=== PATIENT | female | born 1955 | race Caucasian/White ===

== ENCOUNTER 2016-11-24 22:30 | Inpatient (IN) ==
--- NOTE | 2016-11-24 22:34 | Emergency Department Note ---
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 Denies: fever, orthopnea, lower extremity pain, polyuria, polydipsia, parasthesias, palpitations, hemoptysis, diaphoresis, nausea/vomiting , syncope, abdominal pain, sense of impending doom Treatment prior to arrival: oxygen, bronchodilator, other (solumedrol) Cough Description: Involuntary, Productive, Moist, Bronchospastic Cough Frequency: Continuous Sputum production: Yes Sputum Amount: Moderate Sputum Color: Green, Rust - Related Data Home Medications Medication Instructions Recorded Confirmed Albuterol Sulfate [Proair Hfa] 2 puff IN Q4H 07/25/15 07/25/15 Aspirin [Adult Low Dose Aspirin EC] 81 mg PO DAILY 07/25/15 07/25/15 Benzonatate [Tessalon] 100 mg PO TID 07/25/15 07/25/15 Budesonide/Formoterol 160/4.5 2 puff IN BID 07/25/15 07/25/15 [Symbicort 160/4.5] Ergocalciferol (VITAMIN D2) 1 cap PO PER PKG DI 07/25/15 07/25/15 [Vitamin D2 (50,000 UNIT)] Furosemide [Lasix] 40 mg PO DAILY 07/25/15 07/25/15 Guaifenesin [Mucinex] 1,200 mg PO BID 07/25/15 07/25/15 HYDROcodone/Acet 7.5/325 mg [[place] 1 tab PO QID PRN 07/25/15 07/25/15 7.5-325 mg] Ipratropium [ATROVENT Inhaler] 2 puff IH QID 07/25/15 07/25/15 Ipratropium/Albuterol Neb [Duoneb] 3 ml IH Q6HR 07/25/15 07/25/15 Polyethylene Glycol 3350 [MiraLAX] 17 gm PO DAILY 07/25/15 07/25/15 Spironolactone [Aldactone] 25 mg PO DAILY 07/25/15 07/25/15 clonazePAM [Klonopin] 1 mg PO TID 07/25/15 07/25/15 Allergies Allergy/AdvReac Type Severity Reaction Status Date / Time venom-honey bee Allergy Difficulty Verified 11/24/16 22:35 [bee venom (honey bee)] Breathing All systems ED: reviewed and negative except as stated. Review of Systems: As Per HPI Constitutional: Denies: fever, chills Eyes: Denies: eye pain ENT ED: Denies: ear pain Cardiovascular: Denies: chest pain Respiratory: Reports: cough, dyspnea, wheezes Gastrointestinal: Denies: abdominal pain, nausea Genitourinary: Denies: urgency, dysuria Musculoskeletal: Denies: back pain Integumentary: Denies: rash, abrasion Neurological: Denies: headache Psychiatric: Denies: anxiety Endocrine: Denies: fatigue Hematological/Lymphatic: Denies: easy bleeding Allergic/Immunologic: Denies: facial swelling Past Medical History - Past Medical History Attestation: Yes The following information was validated with the patient. Source: patient, old records reviewed, nursing notes reviewed Medical history: Reports: arthritis, COPD, GERD, hepatitis, malignancy, other Surgical history: Reports: other Psychiatric history: Reports: anxiety, depression - Social History Smoking Status: Current some day smoker Smokeless Tobacco Status: No Alcohol use: Reports: none Drug use: Reports: none Physical Exam - General Limitations: no limitations General appearance: alert, in no apparent distress, anxious - Head Head exam: atraumatic, normocephalic, normal inspection - Eye Eye exam: Present: normal appearance, PERRL, EOMI - ENT ENT exam: normal exam, normal oropharynx, mucous membranes moist, normal external ear exam - Neck Neck exam: Present: normal inspection, full ROM, trachea midline - Chest Chest inspection: Present: normal inspection, symmetric chest wall rise - Respiratory Respiratory exam: Present: prolonged expiratory phase, other (Very tight to auscultation) - Cardiovascular Cardiovascular exam: Present: regular rate, normal rhythm, normal heart sounds - Abdominal Exam Abdominal exam: Present: soft, Non-Tender, normal bowel sounds. Absent: mass, pulsatile mass - Extremities Exam Extremities exam: Present: normal inspection, full ROM, normal capillary refill. Absent: tenderness, pedal edema, joint swelling, calf tenderness - Expanded Lower Extremity Exam Neurovascular/Tendon exam: Present: normal capillary refill, normal fine/light touch Gait: observed and normal - Back Exam Back exam: Present: normal inspection, full ROM. Absent: muscle spasm - Neurological Exam Neurological exam: Present: alert, oriented X3, CN II-XII intact - Psychiatric Psychiatric exam: Present: normal affect, normal mood - Skin Skin exam: Present: warm, dry, intact, normal color Course Course Narrative: Patient seen and evaluated patient had sats in the low 80s upon arrival by EMS. Upon arrival here to the emergency room after Solu-Medrol and DuoNeb being given in route sats are in the 90s pneumonia COPD exacerbation and congestive heart failure can be etiologies for this work up is been started patient is resting comfortably at this time on 4 L nasal cannula awaiting results - Reevaluation(s) Reevaluation #1: She responded well to DuoNeb treatments here in the emergency room having already received solu-Medrol give her a dose of Levaquin IV admitted to [facility] speaking with Dr. Amraal for admission marked improvement in air exchange and diminshed wheezing and increase in air exchange patient and she sees Magalis Adame on a regular basis as result Dr. Locke is applications specialist we will contact Dr. Locke and make arrangements for admission Vital Signs Temperature 98.9 F 11/24/16 22:35 Pulse Rate 113 11/24/16 22:35 Respiratory Rate 24 11/24/16 22:35 Blood Pressure 135/79 11/24/16 22:35 O2 Sat by Pulse Oximetry 79 11/24/16 22:35 Temperature 98.9 F 11/24/16 22:35 Pulse Rate 113 11/24/16 22:35 Respiratory Rate 24 11/24/16 22:35 Blood Pressure 135/79 11/24/16 22:35 O2 Sat by Pulse Oximetry 91 11/24/16 22:37 Oxygen Delivery Oxygen Delivery Room Air Shortness of Breath/Dyspnea - Differential Diagnosis Likely: acute exacerbation of chronic obstructive airways disease, pneumonia - Medical Records Medical records reviewed: Yes I reviewed the patient's medical records. - Lab Data Lab results reviewed: Yes I reviewed the patient's lab results. Result diagrams: 11/24/16 22:50 11/24/16 22:50 Lab Results 11/24/16 11/24/16 11/24/16 Range/Units 22:50 22:50 22:50 WBC 19.7 H (4.3-11.1) K/mcL RBC 3.97 (3.82-4.97) M/mcL Hgb 12.7 (11.5-15.4) g/dL Hct 38.6 (35.3-44.9) % MCV 97.2 (83.0-100.0) fL MCH 32.0 (28.0-33.3) pg MCHC 32.9 (31.6-35.5) g/dL RDW 11.9 (11.5-14.5) % Plt Count 158 (140-400) K/mcL MPV 9.6 (9.4-12.4) fL Immature Gran % 0.5 (0-4) % Seg Neutrophils % 76.7 % Lymphocytes % 12.1 % Monocytes % 10.0 % Eosinophils % 0.4 % Basophils % 0.3 % Neutrophils # 15.1 H (1.6-8.9) K/mcL Lymphocytes # 2.4 (0.6-4.6) K/mcL Monocytes # 2.0 H (0.0-1.3) K/mcL Eosinophils # 0.1 (0.0-0.6) K/mcL Basophils # 0.1 (0.0-0.2) K/mcL PT 12.1 (9.4-12.1) Seconds INR 1.1 APTT 30.8 (26.0-36.0) Seconds VBG Lactic Acid (0.5-2.2) mmol/L Sodium 140 (136-145) mEq/L Potassium 3.1 L (3.5-4.5) mEq/L Chloride 91 L (98-109) mEq/L Carbon Dioxide 36 H (19-29) mEq/L BUN 6 L (7-20) mg/dL Creatinine 0.56 L (0.57-1.11) mg/dL Est GFR ( Amer) > 60 (> 60) Est GFR (Non-Af Amer) > 60 (> 60) BUN/Creatinine Ratio 11 (6-26) Glucose 109 H (70-99) mg/dL Calculated Osmolality 288 (280-300) Calcium 9.8 (8.6-10.8) mg/dL Troponin I (0-0.03) ng/mL 11/24/16 11/24/16 Range/Units 22:50 22:50 WBC (4.3-11.1) K/mcL RBC (3.82-4.97) M/mcL Hgb (11.5-15.4) g/dL Hct (35.3-44.9) % MCV (83.0-100.0) fL MCH (28.0-33.3) pg MCHC (31.6-35.5) g/dL RDW (11.5-14.5) % Plt Count (140-400) K/mcL MPV (9.4-12.4) fL Immature Gran % (0-4) % Seg Neutrophils % % Lymphocytes % % Monocytes % % Eosinophils % % Basophils % % Neutrophils # (1.6-8.9) K/mcL Lymphocytes # (0.6-4.6) K/mcL Monocytes # (0.0-1.3) K/mcL Eosinophils # (0.0-0.6) K/mcL Basophils # (0.0-0.2) K/mcL PT (9.4-12.1) Seconds INR APTT (26.0-36.0) Seconds VBG Lactic Acid 1.1 (0.5-2.2) mmol/L Sodium (136-145) mEq/L Potassium (3.5-4.5) mEq/L Chloride (98-109) mEq/L Carbon Dioxide (19-29) mEq/L BUN (7-20) mg/dL Creatinine (0.57-1.11) mg/dL Est GFR ( Amer) (> 60) Est GFR (Non-Af Amer) (> 60) BUN/Creatinine Ratio (6-26) Glucose (70-99) mg/dL Calculated Osmolality (280-300) Calcium (8.6-10.8) mg/dL Troponin I 0.00 (0-0.03) ng/mL - Radiology Data Radiology results reviewed: Yes I reviewed the patient's radiology results. ITS Impressions Chest X-Ray 11/24/16 22:32 IMPRESSION: Hyperinflation suggestive of COPD. Blunting of left costophrenic angle is suspicious for small left pleural effusion or pleural scarring. D/ / Maykel Lemus MD / Maykel Lemus MD Interpreting Provider: Maykel Lemus MD - EKG Data EKG attestation: Yes I reviewed and interpreted this EKG. EKG results narrative: Sinus tach rate 112 MI 100 QRS 93 QT 344 axis LXXII short MI interval Critical Care Time Critical Care Time: No
[2016-11-24] MEDS ORDERED: Ipratropium/Albuterol Neb 3 ML IH ONE (22:37)
[2016-11-24 22:55] LABS: Basophils # 0.1 K/mcL (0.0-0.2); Basophils % 0.3 %; Eosinophils # 0.1 K/mcL (0.0-0.6); Eosinophils % 0.4 %; Hematocrit 38.6 % (35.3-44.9); Hemoglobin 12.7 g/dL (11.5-15.4); Immature Granulocytes % 0.5 % (0-4); Lymphocytes # 2.4 K/mcL (0.6-4.6); Lymphocytes % 12.1 %; Mean Corpuscular HGB Conc 32.9 g/dL (31.6-35.5); Mean Corpuscular Volume 97.2 fL (83.0-100.0); Mean Platelet Volume 9.6 fL (9.4-12.4); Platelet Count 158 K/mcL (140-400); Red Blood Count 3.97 M/mcL (3.82-4.97); Red Cell Distribution Width 11.9 % (11.5-14.5); Segmented Neutrophils % 76.7 %
[2016-11-24 22:59] LABS: INR 1.1; Prothrombin Time 12.1 Seconds (9.4-12.1)
[2016-11-24 23:00] LABS: Neutrophils # 15.1 K/mcL (1.6-8.9)
[2016-11-24 23:02] LABS: Activated Partial Thrombo Time 30.8 Seconds (26.0-36.0)
[2016-11-24] MEDS ORDERED: Levofloxacin 500 MG/100 ML 500 MG/100 ML BAG IVPB ONE (23:05)
[2016-11-24 23:08] LABS: BUN/Creatinine Ratio 11 (6-26); Blood Urea Nitrogen 6 mg/dL (7-20); Calcium 9.8 mg/dL (8.6-10.8); Carbon Dioxide 36 mEq/L (19-29); Chloride 91 mEq/L (98-109); Glucose 109 mg/dL (70-99); Osmolality,Calculated 288 (280-300); Potassium 3.1 mEq/L (3.5-4.5); Sodium 140 mEq/L (136-145); eGFR For African Americans > 60 (> 60); eGFR For Non-African Americans > 60 (> 60)
[2016-11-24] MEDS ORDERED: Ondansetron ODT 4 MG TAB.RAPDIS SL PRN (23:55)
[2016-11-24] MEDS ORDERED: Naloxone 0.4 MG/ML INJ IVP PRN (23:55)
[2016-11-24] MEDS ORDERED: Albuterol 2.5 MG/3 ML NEBULIZER IH PRN (23:55)
[2016-11-24] MEDS ORDERED: *HR* HYDROcodone/Acet 7.5/325 mg TABLET PO PRN (23:55)
[2016-11-24] MEDS ORDERED: Acetaminophen 325 MG TABLET PO PRN (23:55)
[2016-11-25] MEDS: methylPREDNISolone 125 MG/2 ML VIAL IVP SCH ×4 (01:41→18:10)
[2016-11-25] MEDS: Ipratropium/Albuterol Neb 3 ML IH SCH ×5 (04:05→21:06)
[2016-11-25] MEDS: *HR* Enoxaparin 30 MG/0.3 ML SYRINGE SQ SCH (06:27)
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
[2016-11-25] MEDS: FLUoxetine 20 MG CAPSULE PO SCH (10:37)
[2016-11-25] MEDS: Furosemide 40 MG TABLET PO SCH (10:37)
[2016-11-25] MEDS: clonazePAM 1 MG TABLET PO SCH ×3 (10:37→21:06)
[2016-11-25] MEDS: Spironolactone 25 MG TABLET PO SCH (10:37)
[2016-11-25] MEDS: Aspirin Enteric Coated 81 MG Tablet PO SCH (10:37)
[2016-11-25] MEDS: Ibuprofen 400 MG TABLET PO PRN ×2 (10:37→16:41)
[2016-11-25] MEDS: Levofloxacin 500 MG/100 ML 500 MG/100 ML BAG IVPB SCH (10:38)
[2016-11-25] MEDS: Sennosides/Docusate Sodium TABLET PO SCH ×2 (10:38→21:05)
[2016-11-25] MEDS: *HR* HYDROcodone/Acet 7.5/325 mg TABLET PO PRN (16:55)
--- NOTE | 2016-11-25 18:52 | Event Note ---
Date of Encounter: 11/25/16 Time of Encounter: 18:49 Checked on this patient tonight. She had a good day. She still has some sputum production. No hemoptysis. No fevers or chills. Her vitals are stable. Saturations are good as long as she is wearing her oxygen. She has had a bed bath and cleaned up and feels much better. Lungs show diminished breath sounds in all hernandez but no dyspnea. Heart regular rate without murmur. Lower extremities without edema. Her right deltoid area shows a very tender mass measuring about 7 cm in diameter. It seems fairly fixed. No cutaneous color changes. We will do an x-ray on this tomorrow. This could be a metastatic lesion. She has had lung cancer. No history of trauma. We will discontinue her bellman. Continue same treatment. Sputum on Gram stain shows gram-positive cocci. Culture pending.
[2016-11-26] MEDS: Ipratropium/Albuterol Neb 3 ML IH SCH ×6 (00:12→21:04)
[2016-11-26] MEDS: methylPREDNISolone 125 MG/2 ML VIAL IVP SCH ×3 (00:12→17:01)
[2016-11-26 05:19] LABS: Immature Granulocytes % 0.7 % (0-4); Lymphocytes # 0.5 K/mcL (0.6-4.6); Mean Corpuscular HGB Conc 33.3 g/dL (31.6-35.5); Mean Corpuscular Hemoglobin 31.8 pg (28.0-33.3); Mean Corpuscular Volume 95.5 fL (83.0-100.0); Mean Platelet Volume 10.1 fL (9.4-12.4); Monocytes # 0.5 K/mcL (0.0-1.3); Monocytes % 2.7 %; Neutrophils # 15.7 K/mcL (1.6-8.9); Platelet Count 174 K/mcL (140-400); Red Blood Count 3.77 M/mcL (3.82-4.97); Red Cell Distribution Width 11.7 % (11.5-14.5); Segmented Neutrophils % 93.6 %
[2016-11-26 05:23] LABS: Prothrombin Time 10.8 Seconds (9.4-12.1)
[2016-11-26 05:25] LABS: Activated Partial Thrombo Time 27.5 Seconds (26.0-36.0)
[2016-11-26 05:30] LABS: BUN/Creatinine Ratio 23 (6-26); Blood Urea Nitrogen 13 mg/dL (7-20); Calcium 9.6 mg/dL (8.6-10.8); Carbon Dioxide 38 mEq/L (19-29); Chloride 96 mEq/L (98-109); Glucose 170 mg/dL (70-99); Osmolality,Calculated 300 (280-300); Potassium 3.2 mEq/L (3.5-4.5); Sodium 143 mEq/L (136-145); eGFR For African Americans > 60 (> 60); eGFR For Non-African Americans > 60 (> 60)
[2016-11-26] MEDS: *HR* Enoxaparin 30 MG/0.3 ML SYRINGE SQ SCH (06:26)
[2016-11-26] MEDS: FLUoxetine 20 MG CAPSULE PO SCH (08:09)
[2016-11-26] MEDS: Spironolactone 25 MG TABLET PO SCH (08:09)
[2016-11-26] MEDS: Furosemide 40 MG TABLET PO SCH (08:09)
[2016-11-26] MEDS: Sennosides/Docusate Sodium TABLET PO SCH ×2 (08:09→21:03)
[2016-11-26] MEDS: Levofloxacin 500 MG/100 ML 500 MG/100 ML BAG IVPB SCH (08:10)
[2016-11-26] MEDS: clonazePAM 1 MG TABLET PO SCH ×3 (08:10→21:03)
[2016-11-26] MEDS: Ibuprofen 400 MG TABLET PO PRN (08:10)
[2016-11-26] MEDS: Aspirin Enteric Coated 81 MG Tablet PO SCH (08:10)
[2016-11-26] MEDS ORDERED: Ipratropium/Albuterol Neb 3 ML IH PRN (09:08)
--- NOTE | 2016-11-26 09:09 | Internal Med Progress Note ---
Date of Encounter: 11/26/16 Time of Encounter: 08:39 - Assessment and plan (1) Acute exacerbation of chronic obstructive airways disease Current Visit: Yes Status: Acute Assessment and plan: She has had definite improvement symptomatically as well as physically on examination. Continue the same. Still often dependent. We will try to taper down her IV Solu-Medrol. She does not need treatments to the night. We will try to increase her activity level. (2) Sputum production Current Visit: Yes Status: Acute Assessment and plan: Sputum culture result is pending. She is on Levaquin. White blood counts improved. Clinically and symptomatically improved. Continue the same. (3) Oxygen dependent Current Visit: Yes Status: Chronic Assessment and plan: Still requiring oxygen at 3-4 L and has good saturations at 93%. We will increase her activity level and see how she tolerates it. (4) Anxiety and depression Current Visit: Yes Status: Chronic Assessment and plan: Seems to be under good control with current regimen will continue the same. (5) Immunocompromised due to corticosteroids Current Visit: Yes Status: Chronic Assessment and plan: Continue the IV antibiotics. Sputum cultures pending. (6) DVT prophylaxis Current Visit: Yes Status: Acute - Subjective Interval history: Patient continues to improve and feel much better. She wants to be able to be out of bed more. She sat up in a chair yesterday. She denies any cardiac type chest pain. She still has right upper humerus pain and a palpable mass. She denies any GI or symptoms. No lower extremity pain or swelling. She is very happy that her saturations are staying so good. She does not think she needs to be awakened for routine treatment in the middle of the night. She still has thick sputum production. - Constitutional Vitals: Temp Pulse Resp BP Pulse Ox 98.2 F 95 16 119/73 93 11/26/16 07:19 11/26/16 07:19 11/26/16 07:19 11/26/16 07:19 11/26/16 07:19 General appearance: Present: A&O X 3, no acute distress, answers questions appropriately - Respiratory Additional comments: Markedly diminished breath sounds with a few dry crackles in the bases. More audible breath sounds anteriorly. No respiratory distress. Saturations 93% with 4 L per nasal cannula - Cardiovascular Cardiovascular exam: Present: RRR, +S1, +S2. Absent: systolic murmur - GI/Abdominal GI/Abdominal exam: Present: soft. Absent: mass, tenderness - Extremities Exam Extremities exam: Absent: calf tenderness, pedal edema Additional comments: Right upper arm near deltoid area shows 7 or 8 cm tender soft tissue mass. Internal Medicine: Result - Labs CBC & Chem 7: 11/26/16 04:55 11/26/16 04:55 Labs: Short CBC 11/26/16 Range/Units 04:55 WBC 16.8 H (4.3-11.1) K/mcL Hgb 12.0 (11.5-15.4) g/dL Hct 36.0 (35.3-44.9) % Plt Count 174 (140-400) K/mcL Neutrophils # 15.7 H (1.6-8.9) K/mcL BMP 11/26/16 04:55 Sodium 143 Potassium 3.2 L Chloride 96 L Carbon Dioxide 38 H BUN 13 Creatinine 0.56 L Glucose 170 H Calcium 9.6 Labs have been reviewed. Platelets count is improved. Potassium better but still low. Sputum culture is still pending. - ABG Interpretation ABG results: PT/INR, D-dimer PT 10.8 Seconds (9.4-12.1) 11/26/16 04:55 Consult Discharge Plan - Plan Referrals: Anneliese Amaral MD [Primary Care Provider] -
[2016-11-26] MEDS: *HR* HYDROcodone/Acet 7.5/325 mg TABLET PO PRN (17:01)
[2016-11-27] MEDS: methylPREDNISolone 125 MG/2 ML VIAL IVP SCH ×3 (01:11→15:33)
[2016-11-27] MEDS: Ipratropium/Albuterol Neb 3 ML IH SCH ×3 (05:08→15:33)
[2016-11-27 05:23] LABS: Hemoglobin 12.5 g/dL (11.5-15.4); Immature Granulocytes % 0.8 % (0-4); Lymphocytes % 3.8 %; Mean Corpuscular HGB Conc 32.9 g/dL (31.6-35.5); Mean Corpuscular Volume 97.2 fL (83.0-100.0); Mean Platelet Volume 10.2 fL (9.4-12.4); Platelet Count 208 K/mcL (140-400); Red Blood Count 3.91 M/mcL (3.82-4.97); Red Cell Distribution Width 11.8 % (11.5-14.5); Segmented Neutrophils % 93.1 %
[2016-11-27 05:24] LABS: Basophils % 0.1 %; Lymphocytes # 0.5 K/mcL (0.6-4.6); Monocytes # 0.3 K/mcL (0.0-1.3); Monocytes % 2.2 %; Neutrophils # 13.2 K/mcL (1.6-8.9)
[2016-11-27 05:35] LABS: BUN/Creatinine Ratio 31 (6-26); Blood Urea Nitrogen 19 mg/dL (7-20); Calcium 9.6 mg/dL (8.6-10.8); Chloride 97 mEq/L (98-109); Glucose 147 mg/dL (70-99); Osmolality,Calculated 305 (280-300); Potassium 3.4 mEq/L (3.5-4.5); Sodium 145 mEq/L (136-145); eGFR For African Americans > 60 (> 60); eGFR For Non-African Americans > 60 (> 60)
[2016-11-27 05:41] LABS: Carbon Dioxide 41 mEq/L (19-29)
[2016-11-27] MEDS: *HR* Enoxaparin 30 MG/0.3 ML SYRINGE SQ SCH (06:27)
[2016-11-27 07:07] VITALS: BP 118/80
[2016-11-27] MEDS: Aspirin Enteric Coated 81 MG Tablet PO SCH (09:38)
[2016-11-27] MEDS: Levofloxacin 500 MG/100 ML 500 MG/100 ML BAG IVPB SCH (09:39)
[2016-11-27] MEDS: Spironolactone 25 MG TABLET PO SCH (09:39)
[2016-11-27] MEDS: FLUoxetine 20 MG CAPSULE PO SCH (09:39)
[2016-11-27] MEDS: clonazePAM 1 MG TABLET PO SCH ×2 (09:39→15:34)
[2016-11-27] MEDS: Sennosides/Docusate Sodium TABLET PO SCH (09:39)
[2016-11-27] MEDS: Furosemide 40 MG TABLET PO SCH (09:39)
[2016-11-27] MEDS: Ibuprofen 400 MG TABLET PO PRN (09:41)
--- NOTE | 2016-11-27 11:45 | Internal Med Progress Note ---
Date of Encounter: 11/27/16 Time of Encounter: 11:40 - Assessment and plan (1) Acute exacerbation of chronic obstructive airways disease Status: Acute Assessment and plan: Exacerbation of COPD and much improved. We continue to wean the steroids. She still requires oxygen at 4 L which is her usual at home. Nebulizer treatments have been backed down a bit. She is able to increase her activity level, but she still gets dyspneic and hypoxic easily. Will recommend swing bed. (2) Sputum production Status: Acute Assessment and plan: Sputum culture is still pending. (3) Oxygen dependent Status: Chronic Assessment and plan: On oxygen. Still requires 4 L. (4) Anxiety and depression Status: Chronic (5) Immunocompromised due to corticosteroids Status: Chronic (6) DVT prophylaxis Status: Acute - Subjective Interval history: She continues to show improvement. She has been able to be out of bed, goes to the toilet, has been up to the sink while wearing her oxygen. She does however become dyspneic easily. She tried to walk in the hallway yesterday and her saturations dropped to the 70s and low 80s. Just before I came in the room she had been up to the sink and just got into bed and she was still dyspneic for a few minutes. She is not back to her baseline. She states her sputum is less in amount, and is thinner and showing improvement as any cardiac pain. She denies any pain or swelling in extremities. Eating well. - Constitutional Vitals: Temp Pulse Resp BP Pulse Ox 98 F 79 15 118/80 92 11/27/16 07:05 11/27/16 07:05 11/27/16 07:05 11/27/16 07:05 11/27/16 07:05 General appearance: Present: mild distress (She was dyspneic with minimal exertion), A&O X 3, answers questions appropriately - Neck Neck exam general surgery: Absent: lymphadenopathy - Respiratory Additional comments: Diminished breath sounds. Can barely hear anything posteriorly. Slight breath sounds anteriorly but clear - Cardiovascular Cardiovascular exam: Present: distant heart sounds, RRR, +S1, +S2. Absent: systolic murmur - GI/Abdominal GI/Abdominal exam: Absent: guarding, hepatomegaly, splenomegaly Additional comments: Slight tenderness on palpation. Seems to be generalized. No guarding or rebound or rigidity - Extremities Exam Extremities exam: Absent: calf tenderness, pedal edema, tenderness Internal Medicine: Result - Labs CBC & Chem 7: 11/27/16 05:15 11/27/16 05:15 Labs: Short CBC 11/27/16 Range/Units 05:15 WBC 14.2 H (4.3-11.1) K/mcL Hgb 12.5 (11.5-15.4) g/dL Hct 38.0 (35.3-44.9) % Plt Count 208 (140-400) K/mcL Neutrophils # 13.2 H (1.6-8.9) K/mcL BMP 11/27/16 05:15 Sodium 145 Potassium 3.4 L Chloride 97 L Carbon Dioxide 41 H* BUN 19 Creatinine 0.62 Glucose 147 H Calcium 9.6 Labs have been reviewed. White blood cell count continues to improve. Potassium improved. Carbon dioxide though up to 41. Sputum culture still pending - ABG Interpretation ABG results: PT/INR, D-dimer PT 10.8 Seconds (9.4-12.1) 11/26/16 04:55 Consult Discharge Plan - Plan Referrals: Anneliese Amaral MD [Primary Care Provider] -
[2016-11-27] MEDS: *HR* HYDROcodone/Acet 7.5/325 mg TABLET PO PRN (15:40)
--- NOTE | 2016-11-27 16:43 | Electrocardiograph Report ---
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
--- NOTE | 2016-11-29 12:08 | Discharge Summary ---
Date of Encounter: 11/27/16 Time of Encounter: 11:40 - Discharge Diagnosis (1) Pneumonia Priority: Primary Status: Acute Comments: Patient was admitted with exacerbation of COPD but also had fever, elevated white blood cell count and sputum production. Her sputum finally grew Haemophilus influenza and therefore primary diagnosis is pneumonia. She did well with intravenous Levaquin. It is beta lactamase positive. She is still not ready for discharge because of her severe COPD. This is her second hospitalization in about 2-3 months. She will be transferred to a swing bed. Qualifiers: Pneumonia type: due to Haemophilus influenzae Laterality: unspecified laterality Lung location: unspecified part of lung Qualified Code(s): J14 - Pneumonia due to Hemophilus influenzae (2) Acute exacerbation of chronic obstructive airways disease Priority: Secondary Status: Acute Comments: Acute exacerbation of COPD on chronic COPD. Likely underlying pneumonia from H influenza is partially responsible. She was placed on aggressive IV steroids, nebulizer treatments, continuation of her oxygen at 4 L. By day of discharge she was improved but not back to baseline. She is still dyspneic and hypoxic. She is dyspneic with minimal movement in the room. She needs ongoing care and will be transferred to a swing bed. (3) Sputum production Priority: Secondary Status: Acute Comments: Sputum showed Haemophilus influenza which was beta lactamase positive (4) Oxygen dependent Priority: Secondary Status: Chronic Comments: She is oxygen dependent. At home she is on 4 L continuously. We will try to wean her downward a bit here. She does desat with minimal exertion. (5) Anxiety and depression Priority: Secondary Status: Chronic Comments: Chronically she has medication for anxiety and depression and PTSD. We maintained her usual medication and she has done very well. (6) Immunocompromised due to corticosteroids Priority: Secondary Status: Chronic Comments: Chronically she uses prednisone 5 mg. She was given IV Solu-Medrol and weaning downward. She still needs to continue the IV taper and will be switched to a swing bed. (7) DVT prophylaxis Priority: Secondary Status: Inactive - Discharge Medications Home Medications: Albuterol Sulfate [Proair Hfa] 2 puff IN Q4H 07/25/15 [History] Aspirin [Adult Low Dose Aspirin EC] 81 mg PO DAILY 07/25/15 [History] Budesonide/Formoterol 160/4.5 [Symbicort 160/4.5] 2 puff IN BID 07/25/15 [ History] Ergocalciferol (VITAMIN D2) [Vitamin D2 (50,000 UNIT)] 1 cap PO PER PKG DI 07/24 [History] Furosemide [Lasix] 40 mg PO DAILY 07/25/15 [History] Guaifenesin [Mucinex] 1,200 mg PO BID 07/25/15 [History] HYDROcodone/Acet 7.5/325 mg [[place] 7.5-325 mg] 10 mg PO QID PRN 07/25/15 [ History] Ipratropium [ATROVENT Inhaler] 2 puff IH QID 07/25/15 [History] Ipratropium/Albuterol Neb [Duoneb] 3 ml IH Q6HR 07/25/15 [History] Polyethylene Glycol 3350 [MiraLAX] 17 gm PO DAILY 07/25/15 [History] Spironolactone [Aldactone] 25 mg PO DAILY 07/25/15 [History] clonazePAM [Klonopin] 2 mg PO TID 07/25/15 [History] Docusate Sodium [Stool Softener] 100 mg PO BID 11/25/16 [History] FLUoxetine HCl [Fluoxetine HCl] 40 mg PO DAILY 11/25/16 [History] Omeprazole [PriLOSEC] 20 mg PO BID 11/25/16 [History] Allergies/Adverse Reactions: 3 Allergy/AdvReac Type Severity Reaction Status Date / Time venom-honey bee Allergy Difficulty Verified 11/25/16 00:59 [bee venom (honey bee)] Breathing Date of admission: 11/24/16 23:41 Primary care physician: Dyllan Feng Wolf, Debra, CNP Discharging clinician: Dyllan Feng Anticipated date of discharge: 11/27/16 - Patient Status Disposition: Transfer Hospital Swing Bed Condition: Fair - Discharge Instructions Follow Up With: Anneliese Amaral MD [Primary Care Provider] - Forms: ED Satisfaction Letter Interval History: See today's progress note. Hospital course: Ms. Quezada is a 61 year old female with known history of chronic COPD and oxygen dependent. She was admitted with fever, leukocytosis and exacerbation of COPD and sputum production. Her sputum finally grew H influenza. She has been on Levaquin and IV Solu-Medrol. She has shown great improvement but not ready for home. She is easily hypoxic and dyspneic with minimal movement. She will be transferred to a swing bed for ongoing custodial care, IV same Medrol, oxygen therapy and IV Levaquin. Please see the swing bed chart. - Time Spent with Patient Total time spent providing and/or coordinating discharge services: - Constitutional Vitals: Temp Pulse Resp BP Pulse Ox 98 F 79 15 118/80 92 11/27/16 07:05 11/27/16 07:05 11/27/16 07:05 11/27/16 07:05 11/27/16 07:05 General appearance: Present: mild distress (She was dyspneic with minimal exertion), A&O X 3, answers questions appropriately - Respiratory Additional comments: Markedly diminished breath sounds, virtually none posteriorly. Minimal anterior breath sounds but clear - Cardiovascular Cardiovascular exam: Present: distant heart sounds, RRR, +S1, +S2. Absent: systolic murmur - GI/Abdominal GI/Abdominal exam: Present: soft. Absent: tenderness - Extremities Exam Extremities exam: Absent: calf tenderness, pedal edema, tenderness
== END 2016-11-27 17:51 | disposition other institution (70) | DRG 190 ==
LOC: EMEROOGRE 22:30 → INPGRE 23:41
PROVIDERS: ADMIT Family Medicine; ATTEND Family Medicine

== ENCOUNTER 2016-11-27 18:24 | Inpatient (IN) ==
[2016-11-27] MEDS ORDERED: *HR* HYDROcodone/Acet 7.5/325 mg TABLET PO PRN ×2 (18:41→19:02)
[2016-11-27] MEDS ORDERED: Naloxone 0.4 MG/ML INJ IVP PRN (18:46)
[2016-11-27] MEDS ORDERED: Ondansetron ODT 4 MG TAB.RAPDIS SL PRN (18:46)
[2016-11-27] MEDS ORDERED: Acetaminophen 325 MG TABLET PO PRN (18:46)
[2016-11-27] MEDS ORDERED: Albuterol 2.5 MG/3 ML NEBULIZER IH PRN (18:46)
[2016-11-27] MEDS: clonazePAM 1 MG TABLET PO SCH (21:46)
[2016-11-27] MEDS: Sennosides/Docusate Sodium TABLET PO SCH (21:47)
--- NOTE | 2016-11-27 23:55 | Discharge Summary ---
Date of Encounter: 11/27/16 Time of Encounter: 11:40 - Discharge Diagnosis (1) Pneumonia Priority: Primary Status: Acute Comments: Patient was admitted with exacerbation of COPD but also had fever, elevated white blood cell count and sputum production. Her sputum culture grew Haemophilus influenza and I think therefore primary diagnosis is pneumonia. She did well with Levaquin. It is lactamase positive. She is still not ready for discharge because of her severe COPD. This is her second hospitalization in about 2-3 months. She will be transferred to a swing bed. Qualifiers: Pneumonia type: due to Haemophilus influenzae Laterality: unspecified laterality Lung location: unspecified part of lung Qualified Code(s): J14 - Pneumonia due to Hemophilus influenzae (2) Acute exacerbation of chronic obstructive airways disease Priority: Secondary Status: Acute Comments: Acute exacerbation of COPD on chronic COPD. Likely underlying pneumonia from H. influenzae. She was placed on aggressive IV steroids, nebulizer treatments, continuation of her oxygen. By day of discharge she was improved but not back to baseline. She still became dyspneic and hypoxic very easily with minimal movement in the room. She needs ongoing care and will be switched to a swing bed. (3) Sputum production Priority: Secondary Status: Acute Comments: Sputum showed Haemophilus influenza which was beta-lactamase positive (4) Anxiety and depression Priority: Secondary Status: Chronic Comments: She did well with her chronic medications. No changes were made. (5) Immunocompromised due to corticosteroids Priority: Secondary Status: Chronic Comments: She has been on low-dose corticosteroid/prednisone 5 mg. She was given IV Solu- Medrol (6) Oxygen dependent Priority: Secondary Status: Chronic - Discharge Medications Home Medications: Albuterol Sulfate [Proair Hfa] 2 puff IN Q4H 07/25/15 [History] Aspirin [Adult Low Dose Aspirin EC] 81 mg PO DAILY 07/25/15 [History] Budesonide/Formoterol 160/4.5 [Symbicort 160/4.5] 2 puff IN BID 07/25/15 [ History] Ergocalciferol (VITAMIN D2) [Vitamin D2 (50,000 UNIT)] 1 cap PO PER PKG DI 07/24 [History] Furosemide [Lasix] 40 mg PO DAILY 07/25/15 [History] Guaifenesin [Mucinex] 1,200 mg PO BID 07/25/15 [History] HYDROcodone/Acet 7.5/325 mg [[place] 7.5-325 mg] 10 mg PO QID PRN 07/25/15 [ History] Ipratropium [ATROVENT Inhaler] 2 puff IH QID 07/25/15 [History] Ipratropium/Albuterol Neb [Duoneb] 3 ml IH Q6HR 07/25/15 [History] Polyethylene Glycol 3350 [MiraLAX] 17 gm PO DAILY 07/25/15 [History] Spironolactone [Aldactone] 25 mg PO DAILY 07/25/15 [History] clonazePAM [Klonopin] 2 mg PO TID 07/25/15 [History] Docusate Sodium [Stool Softener] 100 mg PO BID 11/25/16 [History] FLUoxetine HCl [Fluoxetine HCl] 40 mg PO DAILY 11/25/16 [History] Omeprazole [PriLOSEC] 20 mg PO BID 11/25/16 [History] predniSONE [PredniSONE] 5 mg PO DAILY 11/25/16 [History] Allergies/Adverse Reactions: 3 Allergy/AdvReac Type Severity Reaction Status Date / Time venom-honey bee Allergy Difficulty Verified 11/25/16 00:59 [bee venom (honey bee)] Breathing Date of admission: 11/27/16 19:11 Primary care physician: Dyllan Feng MD Discharging clinician: Dyllan Feng Anticipated date of discharge: 11/27/16 - Patient Status Disposition: Transfer Hospital Swing Bed Condition: Good Functional capacity at discharge: independent ambulation Overall status at discharge: patient is not back to baseline - Discharge Instructions Follow Up With: Dyllan Feng MD [Primary Care Provider] - - Diet and Activity Activity: wear oxygen at all times Interval History: Please see the progress note for today Hospital course: Ms. Quezada is a 61 year old female with known COPD. She was admitted with fever , leukocytosis, exacerbation of COPD and sputum production. Her sputum finally grew H. influenzae. She has been on Levaquin and IV Solu-Medrol. She has shown great improvement but not ready for home. She is easily hypoxic and dyspneic with minimal movement. She will be transferred to a swing bed. Please see that note. - Time Spent with Patient Total time spent providing and/or coordinating discharge services: - Constitutional Vitals: Temp Pulse Resp BP Pulse Ox 98.5 F 85 18 123/71 91 11/27/16 19:25 11/27/16 19:25 11/27/16 19:25 11/27/16 19:25 11/27/16 19:25 General appearance: Present: mild distress, A&O X 3, answers questions appropriately - Respiratory Additional comments: Markedly diminished breath sounds, virtually none posteriorly. Minimal anterior breath sounds but clear. - Cardiovascular Cardiovascular exam: Present: distant heart sounds, RRR, +S1, +S2. Absent: systolic murmur - Extremities Exam Extremities exam: Absent: calf tenderness, tenderness
[2016-11-28] MEDS ORDERED: methylPREDNISolone 125 MG/2 ML VIAL IVP SCH
--- NOTE | 2016-11-28 00:07 | Internal Med Progress Note ---
Date of Encounter: 11/28/16 Time of Encounter: 06:49 - Assessment and plan (1) Pneumonia Current Visit: Yes Status: Acute Assessment and plan: Sputum culture showed Haemophilus influenza and beta lactamase positive and being treated with Levaquin. Clinically she is markedly improved, but blood cell count normal, sputum is less thick and less often. Oxygenation is better. Continue the same treatment. Qualifiers: Pneumonia type: due to Haemophilus influenzae Laterality: unspecified laterality Lung location: unspecified part of lung Qualified Code(s): J14 - Pneumonia due to Hemophilus influenzae (2) Acute exacerbation of chronic obstructive airways disease Current Visit: Yes Status: Acute Assessment and plan: Her exacerbation of chronic COPD is improved. Actually better airflow in the upper lobes posteriorly. We are weaning the Solu-Medrol. We can taper the oxygen down as her sats have been high. Increase activity as tolerated (3) Sputum production Current Visit: Yes Status: Acute Assessment and plan: Less sputum production. It grew Haemophilus influenza. (4) Anxiety and depression Current Visit: No Status: Chronic (5) Immunocompromised due to corticosteroids Current Visit: No Status: Chronic Assessment and plan: Tapering of Solu-Medrol. (6) Oxygen dependent Current Visit: Yes Status: Chronic Assessment and plan: Her saturations been in the mid to high 90s. She does not have to stay at 4 L constantly. We will titrate to keep her sats in the 90s. Will likely need 4 L when she is active (7) DVT prophylaxis Current Visit: Yes Status: Acute - Subjective Interval history: The patient has slept well. She denies any chest pain. She denies any dyspnea. She did not need her midnight breathing treatment. She denies any cardiac type chest pain. She states her bowels have been loose and she has declined her stool softener. She denies any leg pain or swelling. - Constitutional Vitals: Temp Pulse Resp BP Pulse Ox 98.5 F 85 18 123/71 91 11/27/16 19:25 11/27/16 19:25 11/27/16 19:25 11/27/16 19:25 11/27/16 19:25 General appearance: Present: A&O X 3, no acute distress, answers questions appropriately - Respiratory Additional comments: Markedly diminished breath sounds but increased compared to baseline in the posterior upper lobes. End-expiratory wheezes heard. Anteriorly has better air exchange and has wheezes.. No respiratory distress. No orthopnea. - Cardiovascular Cardiovascular exam: Present: distant heart sounds, RRR, +S1, +S2. Absent: systolic murmur - GI/Abdominal Additional comments: Mass effect in the left lower quadrant but it appears to be in the subcutaneous /skin and likely hematoma from her Lovenox shots. Otherwise no guarding or rebound or rigidity. Bowel sounds are normal. - Extremities Exam Extremities exam: Absent: calf tenderness, pedal edema, tenderness Internal Medicine: Result - Labs CBC & Chem 7: 11/28/16 05:00 11/28/16 05:00 Labs: Labs are markedly improved from baseline of acute bed. Her carbon dioxide has improved. Potassium corrected. White blood cell count normalized. Consult Discharge Plan - Plan Referrals: Dyllan Feng MD [Primary Care Provider] -
[2016-11-28] MEDS: Ipratropium/Albuterol Neb 3 ML IH SCH ×4 (02:00→18:05)
[2016-11-28] MEDS: methylPREDNISolone 125 MG/2 ML VIAL IVP SCH ×2 (04:50→18:05)
[2016-11-28] MEDS: *HR* Enoxaparin 30 MG/0.3 ML SYRINGE SQ SCH (04:52)
[2016-11-28 05:27] LABS: Basophils % 0.2 %; Hemoglobin 12.6 g/dL (11.5-15.4); Immature Granulocytes % 1.1 % (0-4); Lymphocytes # 0.7 K/mcL (0.6-4.6); Lymphocytes % 6.8 %; Mean Corpuscular HGB Conc 32.3 g/dL (31.6-35.5); Mean Corpuscular Hemoglobin 31.7 pg (28.0-33.3); Mean Platelet Volume 10.1 fL (9.4-12.4); Monocytes # 0.7 K/mcL (0.0-1.3); Monocytes % 6.8 %; Neutrophils # 8.7 K/mcL (1.6-8.9); Platelet Count 205 K/mcL (140-400); Red Blood Count 3.98 M/mcL (3.82-4.97); Red Cell Distribution Width 11.6 % (11.5-14.5); Segmented Neutrophils % 85.1 %
[2016-11-28 05:42] LABS: Chloride 99 mEq/L (98-109); Potassium 3.7 mEq/L (3.5-4.5); Sodium 146 mEq/L (136-145)
[2016-11-28 05:43] LABS: BUN/Creatinine Ratio 32 (6-26); Blood Urea Nitrogen 20 mg/dL (7-20); Calcium 9.2 mg/dL (8.6-10.8); Carbon Dioxide 36 mEq/L (19-29); Glucose 125 mg/dL (70-99); Osmolality,Calculated 306 (280-300); eGFR For African Americans > 60 (> 60); eGFR For Non-African Americans > 60 (> 60)
[2016-11-28] MEDS: Aspirin Enteric Coated 81 MG Tablet PO SCH (09:37)
[2016-11-28] MEDS: FLUoxetine 20 MG CAPSULE PO SCH (09:37)
[2016-11-28] MEDS: clonazePAM 1 MG TABLET PO SCH ×3 (09:37→20:18)
[2016-11-28] MEDS: Sennosides/Docusate Sodium TABLET PO SCH ×2 (09:37→20:19)
[2016-11-28] MEDS: Spironolactone 25 MG TABLET PO SCH (09:37)
[2016-11-28] MEDS: Furosemide 40 MG TABLET PO SCH (09:38)
[2016-11-28] MEDS: Levofloxacin 500 MG/100 ML 500 MG/100 ML BAG IVPB SCH (09:38)
[2016-11-28] MEDS: Ibuprofen 400 MG TABLET PO PRN (09:38)
[2016-11-29] MEDS: *HR* Enoxaparin 30 MG/0.3 ML SYRINGE SQ SCH (05:44)
[2016-11-29] MEDS: methylPREDNISolone 125 MG/2 ML VIAL IVP SCH (05:44)
[2016-11-29] MEDS: Ipratropium/Albuterol Neb 3 ML IH SCH ×4 (05:45→17:43)
[2016-11-29] MEDS: Ibuprofen 400 MG TABLET PO PRN ×2 (09:34→20:41)
[2016-11-29] MEDS: Furosemide 40 MG TABLET PO SCH (09:34)
[2016-11-29] MEDS: clonazePAM 1 MG TABLET PO SCH ×3 (09:34→20:38)
[2016-11-29] MEDS: FLUoxetine 20 MG CAPSULE PO SCH (09:34)
[2016-11-29] MEDS: Aspirin Enteric Coated 81 MG Tablet PO SCH (09:35)
[2016-11-29] MEDS: Spironolactone 25 MG TABLET PO SCH (09:35)
[2016-11-29] MEDS: Levofloxacin 500 MG/100 ML 500 MG/100 ML BAG IVPB SCH (09:35)
[2016-11-29] MEDS: Sennosides/Docusate Sodium TABLET PO SCH ×2 (09:36→20:38)
--- NOTE | 2016-11-29 11:47 | Internal Med Progress Note ---
Date of Encounter: 11/29/16 Time of Encounter: 11:28 - Assessment and plan (1) Pneumonia Current Visit: Yes Status: Acute Assessment and plan: Clinically and symptomatically she is improving. We will continue to wean the steroids down. I anticipate she may be ready for discharge tomorrow. Qualifiers: Pneumonia type: due to Haemophilus influenzae Laterality: unspecified laterality Lung location: unspecified part of lung Qualified Code(s): J14 - Pneumonia due to Hemophilus influenzae (2) Acute exacerbation of chronic obstructive airways disease Current Visit: Yes Status: Acute Assessment and plan: Continues to show improvement. She is able to wean her oxygen slightly. Still drops to the 70s when she is ambulating. Continue to wean the steroid intravenously. If able to maintain ADLs reasonably will be discharged tomorrow. (3) Sputum production Current Visit: Yes Status: Acute Assessment and plan: Continues to improve. Was culture positive for H. influenzae (4) Anxiety and depression Current Visit: No Status: Chronic Assessment and plan: currently doing well on her usual medicatio (5) Immunocompromised due to corticosteroids Current Visit: No Status: Chronic Assessment and plan: Continued with IV steroids, will have slow taper of prednisone at discharge (6) Oxygen dependent Current Visit: Yes Status: Chronic Assessment and plan: He will tolerate less oxygen requirement. (7) DVT prophylaxis Current Visit: Yes Status: Acute - Subjective Interval history: Patient states she continues to improve. She is thrilled she is able to wean down her oxygen from 4 L down to 3-1/2 L and maintain saturations in the 90s. When she walked to get her hair washed it did drop to the 70s. She denies any cardiac type chest pain. Appetite is good. Bowels and bladder are working well. No lower extremity pain or edema. Sputum is getting thinner and less often. No fevers or chills. - Constitutional Vitals: Temp Pulse Resp BP Pulse Ox 98.2 F 75 18 127/72 92 11/29/16 07:43 11/29/16 10:05 11/29/16 10:05 11/29/16 07:43 11/29/16 10:05 General appearance: Present: A&O X 3, no acute distress, answers questions appropriately - Respiratory Additional comments: Markedly diminished breath sounds bilaterally, barely hear anything posteriorly, but clear. Very prolonged expiratory phase anteriorly. No respiratory distress. - Cardiovascular Cardiovascular exam: Present: distant heart sounds, RRR, +S1, +S2. Absent: systolic murmur - GI/Abdominal GI/Abdominal exam: Absent: tenderness - Extremities Exam Extremities exam: Absent: calf tenderness, pedal edema Internal Medicine: Result - Labs CBC & Chem 7: 11/28/16 05:00 11/28/16 05:00 Consult Discharge Plan - Plan Referrals: Dyllan Feng MD [Primary Care Provider] -
[2016-11-29] MEDS: Ipratropium/Albuterol Neb 3 ML IH PRN (20:39)
[2016-11-30] MEDS: Ipratropium/Albuterol Neb 3 ML IH SCH ×3 (00:06→12:24)
[2016-11-30] MEDS ORDERED: *HR* Enoxaparin 40 MG/0.4 ML SYRINGE SQ SCH (06:00)
[2016-11-30 07:40] VITALS: BP 120/61
[2016-11-30] MEDS ORDERED: methylPREDNISolone 125 MG/2 ML VIAL IVP SCH (09:00)
[2016-11-30] MEDS: Ipratropium/Albuterol Neb 3 ML IH PRN ×2 (10:01→14:41)
[2016-11-30] MEDS: Sennosides/Docusate Sodium TABLET PO SCH (10:02)
[2016-11-30] MEDS: Aspirin Enteric Coated 81 MG Tablet PO SCH (10:03)
[2016-11-30] MEDS: FLUoxetine 20 MG CAPSULE PO SCH (10:03)
[2016-11-30] MEDS: clonazePAM 1 MG TABLET PO SCH ×2 (10:03→14:41)
[2016-11-30] MEDS: Spironolactone 25 MG TABLET PO SCH (10:04)
[2016-11-30] MEDS: Furosemide 40 MG TABLET PO SCH (10:04)
[2016-11-30] MEDS: Levofloxacin 500 MG/100 ML 500 MG/100 ML BAG IVPB SCH (10:08)
--- NOTE | 2016-11-30 13:17 | Discharge Summary ---
Date of Encounter: 11/30/16 Time of Encounter: 13:14 - Discharge Diagnosis (1) Pneumonia Priority: Primary Status: Acute Comments: Patient was admitted to an acute bed and then subsequently to a swing bed for ongoing care for her pneumonia with sputum that grew H. influenzae. It was beta lactamase positive. In the acute bed she had a history of fever, leukocytosis, hypoxia and exacerbation of her COPD. Since her first day of admission she had been on Levaquin. She did extremely well. She was transferred to a swing bed for ongoing skilled care, continue IV Levaquin, tapering IV Solu-Medrol continuation of her oxygen and needed more time to regain her ADLs. On day of discharge she had markedly diminished breath sounds throughout but clear. Certainly a big improvement since her admission. Saturations were in the 90s with 3.5 L per nasal cannula. (She was able to wean herself down from 4 L that she uses chronically). She has no sputum production now. Her vitals were stable. She will be discharged to home on 5 more days of Levaquin and a taper of prednisone. She will follow-up in the office with her PCP Magalis Adame on Thursday as previously scheduled. Qualifiers: Pneumonia type: due to Haemophilus influenzae Laterality: unspecified laterality Lung location: unspecified part of lung Qualified Code(s): J14 - Pneumonia due to Hemophilus influenzae (2) Acute exacerbation of chronic obstructive airways disease Priority: Secondary Status: Acute Comments: On her acute admission she had exacerbation of COPD the required aggressive nebulizer treatments, intravenous Solu-Medrol and rest. She improved and was later transferred to a swing bed for ongoing skilled care, taper over IV Solu- Medrol and increase of her ADLs. By day of discharge she was able to try with her oxygen at 3.5 L and able to maintain her saturations in the 90s. I have recommended a slow taper of prednisone starting at 40 mg a day for a week, 30mg a day for a week, 20mg a day for a week, then 10 mg thereafter. Previously she was on 5 mg as maintenance but she has had 2 hospitalizations in the past couple of months and may do better at 10 mg for a while. (3) Sputum production Priority: Secondary Status: Acute Comments: She has sputum production on admission that grew H. influenzae. Beta lactamase positive. She did well with Levaquin. (4) Anxiety and depression Priority: Secondary Status: Resolved Comments: She is a history of anxiety, depression and PTSD. She did well with her current medications and no changes made (5) Immunocompromised due to corticosteroids Priority: Secondary Status: Chronic Comments: She chronically uses 5 g of prednisone. She will be on a taper of prednisone starting at 40 mg and tapering downward. I suggested a 10 mg maintenance rather than 5 mg as she has had 2 hospitalizations in the past 2-3 months. (6) Oxygen dependent Priority: Secondary Status: Chronic Comments: At home she was always on 4 L per nasal cannula. She is thrilled that she can get by with 3.5 L. I told her she can try to go lower when she is at rest. She has a pulse oximeter meter at home and can adjust accordingly. - Discharge Medications Prescriptions: Levofloxacin [Levaquin] 500 mg PO DAILY #5 tablet predniSONE [PredniSONE] 10 mg PO DAILY #70 tablet Home Medications: Albuterol Sulfate [Proair Hfa] 2 puff IN Q4H 07/25/15 [History] Aspirin [Adult Low Dose Aspirin EC] 81 mg PO DAILY 07/25/15 [History] Budesonide/Formoterol 160/4.5 [Symbicort 160/4.5] 2 puff IN BID 07/25/15 [ History] Ergocalciferol (VITAMIN D2) [Vitamin D2 (50,000 UNIT)] 1 cap PO PER PKG DI 07/24 [History] Furosemide [Lasix] 40 mg PO DAILY 07/25/15 [History] Guaifenesin [Mucinex] 1,200 mg PO BID 07/25/15 [History] HYDROcodone/Acet 7.5/325 mg [[place] 7.5-325 mg] 10 mg PO QID PRN 07/25/15 [ History] Ipratropium [ATROVENT Inhaler] 2 puff IH QID 07/25/15 [History] Ipratropium/Albuterol Neb [Duoneb] 3 ml IH Q6HR 07/25/15 [History] Polyethylene Glycol 3350 [MiraLAX] 17 gm PO DAILY 07/25/15 [History] Spironolactone [Aldactone] 25 mg PO DAILY 07/25/15 [History] clonazePAM [Klonopin] 2 mg PO TID 07/25/15 [History] Docusate Sodium [Stool Softener] 100 mg PO BID 11/25/16 [History] FLUoxetine HCl [Fluoxetine HCl] 40 mg PO DAILY 11/25/16 [History] Omeprazole [PriLOSEC] 20 mg PO BID 11/25/16 [History] Levofloxacin [Levaquin] 500 mg PO DAILY #5 tablet 11/30/16 [Rx] predniSONE [PredniSONE] 10 mg PO DAILY #70 tablet 11/30/16 [Rx] Allergies/Adverse Reactions: 3 Allergy/AdvReac Type Severity Reaction Status Date / Time venom-honey bee Allergy Difficulty Verified 11/25/16 00:59 [bee venom (honey bee)] Breathing Procedures/tests Complete & Pending: Laboratory Last Values WBC 10.3 K/mcL (4.3-11.1) 11/28/16 05:00 RBC 3.98 M/mcL (3.82-4.97) 11/28/16 05:00 Hgb 12.6 g/dL (11.5-15.4) 11/28/16 05:00 Hct 39.0 % (35.3-44.9) 11/28/16 05:00 MCV 98.0 fL (83.0-100.0) 11/28/16 05:00 MCH 31.7 pg (28.0-33.3) 11/28/16 05:00 MCHC 32.3 g/dL (31.6-35.5) 11/28/16 05:00 RDW 11.6 % (11.5-14.5) 11/28/16 05:00 Plt Count 205 K/mcL (140-400) 11/28/16 05:00 MPV 10.1 fL (9.4-12.4) 11/28/16 05:00 Immature Gran % 1.1 % (0-4) 11/28/16 05:00 Seg Neutrophils % 85.1 % 11/28/16 05:00 Lymphocytes % 6.8 % 11/28/16 05:00 Monocytes % 6.8 % 11/28/16 05:00 Eosinophils % 0.0 % 11/28/16 05:00 Basophils % 0.2 % 11/28/16 05:00 Neutrophils # 8.7 K/mcL (1.6-8.9) 11/28/16 05:00 Lymphocytes # 0.7 K/mcL (0.6-4.6) 11/28/16 05:00 Monocytes # 0.7 K/mcL (0.0-1.3) 11/28/16 05:00 Eosinophils # 0.0 K/mcL (0.0-0.6) 11/28/16 05:00 Basophils # 0.0 K/mcL (0.0-0.2) 11/28/16 05:00 Sodium 146 mEq/L (136-145) H 11/28/16 05:00 Potassium 3.7 mEq/L (3.5-4.5) 11/28/16 05:00 Chloride 99 mEq/L (98-109) 11/28/16 05:00 Carbon Dioxide 36 mEq/L (19-29) H 11/28/16 05:00 BUN 20 mg/dL (7-20) 11/28/16 05:00 Creatinine 0.62 mg/dL (0.57-1.11) 11/28/16 05:00 Est GFR ( Amer) > 60 (> 60) 11/28/16 05:00 Est GFR (Non-Af Amer) > 60 (> 60) 11/28/16 05:00 BUN/Creatinine Ratio 32 (6-26) H 11/28/16 05:00 Glucose 125 mg/dL (70-99) H 11/28/16 05:00 Calculated Osmolality 306 (280-300) H 11/28/16 05:00 Calcium 9.2 mg/dL (8.6-10.8) 11/28/16 05:00 Date of admission: 11/27/16 19:11 Primary care physician: Magalis Adame CNP Discharging clinician: Dyllan Feng Anticipated date of discharge: 11/30/16 - Patient Status Disposition: Home, Self-Care Condition: Good Functional capacity at discharge: independent ambulation Overall status at discharge: patient is progressing back to baseline (she needs to wear her oxygen chronically) - Discharge Instructions Instructions: Chronic Obstructive Pulmonary Disease (DC), Pneumonia (DC) Follow Up With: Magalis Adame CNP [Advanced Practice Nurse] - 12/05/16 1:40 pm - Diet and Activity Activity: increase activity as tolerated, wear oxygen at all times Diet: low fat, low cholesterol, low salt diet Interval History: Overnight patient did well. This morning she was able to be up in the room with her oxygen at 3.5 L and maintain her saturations in the 90s. She is happy she has been able to be up with doing her ADLs, went to the toilet, etc. She denies any sputum production. Denies a dyspnea this morning. There is no chest pain. She feels ready to go home. Hospital course: Ms. Quezada is a 61 year old female with known history of COPD, oxygen dependent , chronic pain, anxiety and depression and numerous medical problems. She was hospitalized 2 or 3 months ago at [facility] and had to be intubated. This time she was admitted to [facility] with exacerbation of COPD and found to have underlying pneumonia of H. influenzae. She was in an acute bed with IV Levaquin, intravenous steroids, aggressive nebulizer treatments for a few days. She was then transferred to a swing bed for ongoing intravenous medications, tapering over steroids etc. In the swing bed she did extremely well. She is now able to be up in the room to do her ADLs, to the toilet etc. and tolerating her oxygen at 3.5 L per nasal cannula and keep his saturations in the 90s. She has been ambulatory in the hallway and has quick recovery of her saturations at rest. She feels much better and should do well at home at this point. She also has a caregiver 5 days per week at home. She has a nebulizer machine at home, she is are set up with oxygen, etc. She will be discharged home today and will follow up with Magalis Adame on Thursday in the office. She will be on 5 more days of Levaquin and a taper of prednisone starting at 40 mg daily for a week and tapering down over a month's time. - Time Spent with Patient Total time spent providing and/or coordinating discharge services: - Constitutional Vitals: Temp Pulse Resp BP Pulse Ox 98.4 F 83 18 120/61 94 11/30/16 07:33 11/30/16 07:33 11/30/16 09:00 11/30/16 07:33 11/30/16 11:35 General appearance: Present: A&O X 3, no acute distress, answers questions appropriately - Respiratory Additional comments: Markedly diminished breath sounds posteriorly, better air exchange in the upper lobes today. Anteriorly she has increased expiratory phase. No wheezes or crackles. No respiratory distress - Cardiovascular Cardiovascular exam: Present: distant heart sounds, RRR, +S1, +S2. Absent: systolic murmur - Extremities Exam Extremities exam: Absent: calf tenderness, pedal edema, tenderness
[2016-11-30] MEDS: Ibuprofen 400 MG TABLET PO PRN (14:41)
== END 2016-11-30 14:59 | disposition home or self-care (01) | DRG 190 ==
LOC: INPGRE 19:11
PROVIDERS: ADMIT Family Medicine; ATTEND Family Medicine